=== PATIENT | female | born 1940 | race Caucasian/White ===

== ENCOUNTER 2019-02-13 15:36 | Outpatient (REF) | payer MEDICARE, SELFPAY ==
[2019-02-13 20:44] LABS: HCT 39.1 % (36.0-46.0); HGB 12.9 g/dL (12.0-15.5); Mean Corpuscular Hemoglobin 31.2 pg (27.0-33.0); Mean Corpuscular Volume 94.7 fL (80-95); Mean Platelet Volume 11.8 fL (8.0-11.0); Platelet Count 212 x1000/uL (130-400); RBC 4.13 m/cumm (4.00-5.20); RBC Distribution Width 15.2 % (11.7-14.6); White Blood Cell Count 5.29 k/cumm (4.4-10.8)
[2019-02-13 21:11] LABS: ALT 28 U/L (14-59); AST 27 U/L (15-37); Alkaline Phosphatase 75 U/L (46-116); Anion Gap 8.2 mmol/L (3-11); BUN 18 mg/dL (7-18); Bilirubin, Total 0.3 mg/dL (0.2-1.0); CO2 27.8 mmol/L (21.0-32.0); CREATININE 0.96 mg/dL (0.55-1.02); Calcium 9.2 mg/dL (8.5-10.1); Calculated LDL 130 mg/dL; Chloride 105 mmol/L (98-107); Cholesterol 211 mg/dL (50-200); Estimated GFR 56.51 (mL/min/1.73m2); Glucose 102 mg/dL (70-100); HDL Cholesterol 70 mg/dL (40-60); Potassium 4.3 mmol/L (3.5-5.1); Sodium 141 mmol/L (136-145); Total Protein 7.3 g/dL (6.4-8.2); Triglyceride 58 mg/dL (30-150)
[2019-02-13 21:42] LABS: Creatine Kinase 103 U/L (26-192)
== END 2019-02-13 15:56 ==
LOC: NCHCN 15:36
PROVIDERS: PCP Internal Medicine; Visit Provider Internal Medicine
DX: M06.9 Rheumatoid arthritis, unspecified (principal); H35.341 Macular cyst, hole, or pseudohole, right eye; Z13.6 Encounter for screening for cardiovascular disorders
CPT/HCPCS: 80053; 80061; 82550; 85027

== ENCOUNTER 2022-04-25 13:33 | Outpatient (REF) | payer MEDICARE, SELFPAY ==
[2022-04-25 20:00] LABS: Abs Immature Grans 0.01 10^3/uL (0.0-0.06); Absolute Basophil Count 0.03 10^3/uL (0.0-0.2); Absolute Eosinophil Count 0.09 10^3/uL (0.0-0.7); Absolute Lymphocyte Count 0.51 10^3/uL (1.2-3.4); Absolute Monocyte Count 0.61 10^3/uL (0.1-0.8); Absolute Neutrophil Count 3.55 10^3/uL (1.2-6.7); Basophils % 0.6; Eosinophils % 1.9; HGB 13.2 g/dL (11.2-15.7); Immature Grans % 0.2; Lymphocytes % 10.6; MCH 30.8 pg (27.0-33.0); MCV 93 fL (80-95); MPV 11.7 fL (8.0-11.0); Monocytes % 12.7; Platelet Count 249 10^3/uL (130-400); RBC 4.29 10^6/uL (3.93-5.22); RDW 15.2 % (11.7-14.6); RDW-SD 51.2 fL
[2022-04-25 20:27] LABS: ALT 26 U/L (14-59); AST 32 U/L (15-37); Albumin 3.9 g/dL (3.4-5.0); Alkaline Phosphatase 74 U/L (46-116); Anion Gap 8.4 mmol/L (3-11); BUN 18 mg/dL (7-18); Bilirubin, Total 0.4 mg/dL (0.2-1.0); CO2 25.6 mmol/L (21.0-32.0); CREATININE 0.9 mg/dL (0.55-1.02); Calcium 9.5 mg/dL (8.5-10.1); Calculated LDL 128 mg/dL (<100); Chloride 106 mmol/L (98-107); Cholesterol 212 mg/dL (<200); Estimated GFR 65.03 (mL/min/1.73m2); Glucose 108 mg/dL (74-106); HDL Cholesterol 76 mg/dL (40-60); Potassium 4.3 mmol/L (3.5-5.1); Sodium 140 mmol/L (136-145); Total Protein 7.9 g/dL (6.4-8.2); Triglyceride 44 mg/dL (<150)
== END 2022-04-25 13:34 | disposition home or self-care (01) ==
LOC: NCHCN 13:33
PROVIDERS: PCP Internal Medicine; Visit Provider Internal Medicine
DX: E78.5 Hyperlipidemia, unspecified (principal); M06.9 Rheumatoid arthritis, unspecified; Z79.899 Other long term (current) drug therapy
CPT/HCPCS: 80053; 80061; 85025

== ENCOUNTER 2023-07-31 18:47 | Outpatient (REF) | payer MEDICARE, SELFPAY ==
[2023-07-31 19:33] LABS: ESR 22 mm/hr (0-30)
[2023-07-31 19:35] LABS: HCT 42.5 % (36.0-46.0); HGB 13.8 g/dL (11.2-15.7); MCH 30.4 pg (27.0-33.0); MCHC 32.5 % (32.0-36.0); MCV 94 fL (80-95); MPV 11.4 fL (8.0-11.0); Platelet Count 239 10^3/uL (130-400); RBC 4.54 10^6/uL (3.93-5.22); RDW 14.6 % (11.7-14.6); RDW-SD 49.5 fL; WBC 6.38 10^3/uL (4.4-10.8)
[2023-07-31 19:53] LABS: ALT 26 U/L (14-59); AST 32 U/L (15-37); Alkaline Phosphatase 70 U/L (46-116); Anion Gap 9.2 mmol/L (3-11); BUN 20 mg/dL (7-18); Bilirubin, Total 0.3 mg/dL (0.2-1.0); CO2 26.8 mmol/L (21.0-32.0); Calcium 9.7 mg/dL (8.5-10.1); Chloride 104 mmol/L (98-107); Estimated GFR 56.95 (mL/min/1.73m2); Glucose 105 mg/dL (74-106); Potassium 4.3 mmol/L (3.5-5.1); Sodium 140 mmol/L (136-145); Total Protein 8.2 g/dL (6.4-8.2)
[2023-07-31 19:55] LABS: C-Reactive Protein < 0.50 mg/dL (<or=0.5)
== END 2023-07-31 18:48 | disposition home or self-care (01) ==
LOC: NCHCN 18:47
PROVIDERS: PCP Internal Medicine; Referring Provider Internal Medicine; Visit Provider Internal Medicine
DX: E78.5 Hyperlipidemia, unspecified (principal)
CPT/HCPCS: 80053; 85027; 85652; 86140

== ENCOUNTER 2024-01-31 12:00 | Outpatient (REF) | payer MEDICARE, SELFPAY ==
[2024-01-31 20:32] LABS: ESR 31 mm/hr (0-30)
[2024-01-31 20:45] LABS: ALT 27 U/L (14-59); AST 32 U/L (15-37); Albumin 3.9 g/dL (3.4-5.0); Alkaline Phosphatase 73 U/L (46-116); Anion Gap 10.5 mmol/L (3-11); BUN 13 mg/dL (7-18); CO2 24.5 mmol/L (21.0-32.0); Chloride 106 mmol/L (98-107); Glucose 106 mg/dL (74-106); Potassium 4.3 mmol/L (3.5-5.1); Sodium 141 mmol/L (136-145); Total Protein 7.7 g/dL (6.4-8.2)
== END 2024-01-31 12:01 | disposition home or self-care (01) ==
LOC: NCHCN 12:00
PROVIDERS: PCP Internal Medicine; Visit Provider Internal Medicine
DX: E78.5 Hyperlipidemia, unspecified (principal); M06.9 Rheumatoid arthritis, unspecified
CPT/HCPCS: 80053; 85652; 86141

== ENCOUNTER 2024-08-02 11:12 | Outpatient (REF) | payer MEDICARE, SELFPAY ==
[2024-08-02 19:08] LABS: Abs Immature Grans 0.03 10^3/uL (0.0-0.06); Absolute Basophil Count 0.06 10^3/uL (0.0-0.2); Absolute Eosinophil Count 0.12 10^3/uL (0.0-0.7); Absolute Lymphocyte Count 0.53 10^3/uL (1.2-3.4); Absolute Monocyte Count 0.77 10^3/uL (0.1-0.8); Absolute Neutrophil Count 6.27 10^3/uL (1.2-6.7); Basophils % 0.8 %; Eosinophils % 1.5 %; HCT 42.3 % (36.0-46.0); HGB 13.5 g/dL (11.2-15.7); Immature Grans % 0.4 %; Lymphocytes % 6.8 %; MCH 30.9 pg (27.0-33.0); MCHC 31.9 % (32.0-36.0); MCV 97 fL (80-95); MPV 11.3 fL (8.0-11.0); Monocytes % 9.9 %; Neutrophils % 80.6 %; Platelet Count 278 10^3/uL (130-400); RBC 4.37 10^6/uL (3.93-5.22); RDW 14.7 % (11.7-14.6); RDW-SD 51.9 fL; WBC 7.78 10^3/uL (4.4-10.8)
[2024-08-02 19:34] LABS: ALT 26 U/L (14-59); AST 31 U/L (15-37); Albumin 3.7 g/dL (3.4-5.0); Alkaline Phosphatase 97 U/L (46-116); Anion Gap 7.1 mmol/L (3-11); BUN 20 mg/dL (7-18); CO2 26.9 mmol/L (21.0-32.0); CREATININE 1.1 mg/dL (0.55-1.02); Calcium 9.5 mg/dL (8.5-10.1); Calculated LDL 121 mg/dL (<100); Chloride 108 mmol/L (98-107); Cholesterol 211 mg/dL (<200); Estimated GFR 50.48 (mL/min/1.73m2); Glucose 101 mg/dL (74-106); HDL Cholesterol 74 mg/dL (40-60); Potassium 4.3 mmol/L (3.5-5.1); Sodium 142 mmol/L (136-145); Total Protein 7.9 g/dL (6.4-8.2); Triglyceride 80 mg/dL (<150)
[2024-08-02 19:35] LABS: C-Reactive Protein < 0.50 mg/dL (<or=0.5)
== END 2024-08-02 11:13 | disposition home or self-care (01) ==
LOC: NCHCN 11:12
PROVIDERS: PCP Internal Medicine; Visit Provider Internal Medicine
DX: E78.5 Hyperlipidemia, unspecified (principal); M06.9 Rheumatoid arthritis, unspecified
CPT/HCPCS: 80053; 80061; 85025; 86140

== ENCOUNTER 2024-12-27 17:50 | Outpatient (REF) | payer MEDICARE, SELFPAY ==
[2024-12-27 19:39] LABS: HCT 39.0 % (36.0-46.0); HGB 12.7 g/dL (11.2-15.7); MCH 30.5 pg (27.0-33.0); MCHC 32.6 % (32.0-36.0); MCV 94 fL (80-95); MPV 11.5 fL (8.0-11.0); Platelet Count 223 10^3/uL (130-400); RBC 4.16 10^6/uL (3.93-5.22); RDW 15.1 % (11.7-14.6); RDW-SD 51.3 fL; WBC 5.72 10^3/uL (4.4-10.8)
[2024-12-27 20:03] LABS: ALT 33 U/L (14-59); AST 33 U/L (15-37); Albumin 4.1 g/dL (3.4-5.0); Alkaline Phosphatase 74 U/L (46-116); Anion Gap 9.2 mmol/L (3-11); BUN 21 mg/dL (7-18); Bilirubin, Total 0.3 mg/dL (0.2-1.0); CO2 25.8 mmol/L (21.0-32.0); Calcium 9.7 mg/dL (8.5-10.1); Chloride 106 mmol/L (98-107); Estimated GFR 50.17 (mL/min/1.73m2); Glucose 100 mg/dL (74-106); Potassium 4.2 mmol/L (3.5-5.1); Sodium 141 mmol/L (136-145); Total Protein 7.7 g/dL (6.4-8.2)
== END 2024-12-27 17:51 | disposition home or self-care (01) ==
LOC: NCHCN 17:50
PROVIDERS: PCP Internal Medicine; Visit Provider Internal Medicine
DX: M06.9 Rheumatoid arthritis, unspecified (principal)
CPT/HCPCS: 80053; 85027